=== PATIENT | male | born 1955 | race African-American/Black ===

== ENCOUNTER 2021-08-08 22:23 | Inpatient (IN) | payer MEDICARE ==
[2021-08-08 23:19] LABS: #Monocytes 0.3 10x3/uL (0.0-1.1); #Neutrophils 3.5 10x3/uL (1.5-8.4); %Basophils 0.2 % (0.0-2.0); %Lymphocytes 9.7 % (18.0-47.0); %Monocytes 6.6 % (0.0-10.0); %Neutrophils 83.3 % (40.0-75.0); Hemoglobin 12.7 g/dL (13.5-17.5); Mean Corpuscular HGB CONC 33.7 g/dL (32.0-36.0); Mean Corpuscular Hemoglobin 29.7 pg (27.0-33.0); Mean Corpuscular Volume 88.1 fl (81.2-95.1); Mean Platelet Volume 9.3 fl (7.4-10.4); Platelet Count 205 10x3/uL (150-450); RBC Distribution Width 12.5 % (11.5-14.5); Red Blood Cell (RBC) Count 4.28 10x6/uL (4.32-5.72); White Blood Cell (WBC) Count 4.2 10x3/uL (3.5-10.5)
[2021-08-08 23:35] LABS: SARS-CoV-2 NAA Rapid Test DETECTED (NotDetected)
[2021-08-08 23:41] LABS: ALT (SGPT) 29 U/L (8-55); AST (SGOT) 49 U/L (5-34); Albumin 3.2 g/dL (3.4-4.8); Alkaline Phosphatase 36 U/L (40-110); Anion Gap 14 mmol/L (10-20); BUN (Urea Nitrogen) 16 mg/dL (8.4-25.7); Bilirubin, Total 0.4 mg/dL (0.2-1.2); Calc. Creatinine Clearance 0 mL/min (70-130); Calcium 8.1 mg/dL (7.8-10.44); Carbon Dioxide 22 mmol/L (23-31); Chloride 102 mmol/L (98-107); Globulin 3.2 g/dL (2.4-3.5); Glucose 228 mg/dL (80-115); Potassium 4.3 mmol/L (3.5-5.1); Protein, Total 6.4 g/dL (5.8-8.1); Sodium 134 mmol/L (136-145)
[2021-08-09] MEDS ORDERED: Dexamethasone 10 MG/ML VIAL ONE (01:51)
[2021-08-09] MEDS ORDERED: Calcium Carbonate 500 MG ChewTAB PO PRN (02:29)
[2021-08-09] MEDS ORDERED: Guaifenesin DM 100-10/5 ML UDCUP PO PRN (02:29)
[2021-08-09] MEDS ORDERED: HYDROcodone/Acetaminophen 5/325 mg Tablet PO PRN (02:29)
[2021-08-09] MEDS ORDERED: Acetaminophen 325 MG TAB PO PRN (02:29)
[2021-08-09] MEDS ORDERED: Ondansetron PF 4 MG/2 ML Vial IVP PRN (02:29)
[2021-08-09] MEDS ORDERED: Senokot S 8.6-50 MG TAB PO PRN (02:29)
[2021-08-09] MEDS ORDERED: Dextrose 5% in Water 1,000 ML IV PRN (02:29)
[2021-08-09] MEDS ORDERED: Dextrose 50% Abboject 50 ML SYRINGE SLOW IVP PRN (02:29)
[2021-08-09] MEDS ORDERED: Ventolin HFA Inhaler 60 PUFF INHALER INH PRN (02:37)
[2021-08-09] MEDS ORDERED: Lactated Ringer's 500 ML IV SCH ×2 (04:00→04:15)
[2021-08-09 04:05] VITALS: BMI 29.0
[2021-08-09 07:13] LABS: #Monocytes 0.1 10x3/uL (0.0-1.1); #Neutrophils 3.2 10x3/uL (1.5-8.4); %Lymphocytes 10.4 % (18.0-47.0); %Monocytes 3.5 % (0.0-10.0); %Neutrophils 85.6 % (40.0-75.0); Hemoglobin 13.5 g/dL (13.5-17.5); Mean Corpuscular HGB CONC 33.9 g/dL (32.0-36.0); Mean Corpuscular Hemoglobin 29.7 pg (27.0-33.0); Mean Corpuscular Volume 87.7 fl (81.2-95.1); Mean Platelet Volume 9.2 fl (7.4-10.4); Platelet Count 210 10x3/uL (150-450); RBC Distribution Width 12.8 % (11.5-14.5); Red Blood Cell (RBC) Count 4.54 10x6/uL (4.32-5.72); White Blood Cell (WBC) Count 3.8 10x3/uL (3.5-10.5)
[2021-08-09] MEDS: HumaLOG 300 UNITS/3 ML VIAL SC PRN ×2 (07:25→11:00)
[2021-08-09 07:42] LABS: ALT (SGPT) 30 U/L (8-55); AST (SGOT) 48 U/L (5-34); Albumin 3.3 g/dL (3.4-4.8); Alkaline Phosphatase 39 U/L (40-110); Anion Gap 16 mmol/L (10-20); BUN (Urea Nitrogen) 15 mg/dL (8.4-25.7); Bilirubin, Total 0.5 mg/dL (0.2-1.2); CRP (Inflammatory) 7.65 mg/dL (= or < 0.5); Calc. Creatinine Clearance 102 mL/min (70-130); Calcium 7.9 mg/dL (7.8-10.44); Carbon Dioxide 23 mmol/L (23-31); Chloride 102 mmol/L (98-107); Globulin 2.6 g/dL (2.4-3.5); Glucose 270 mg/dL (80-115); Potassium 6.6 mmol/L (3.5-5.1); Protein, Total 5.9 g/dL (5.8-8.1); Sodium 134 mmol/L (136-145)
[2021-08-09 07:52] LABS: Thyroid Stimulating Hormone 0.6535 uIU/mL (0.35-4.94)
[2021-08-09] MEDS: metFORMIN 500 MG TAB PO SCH ×2 (08:25→17:33)
[2021-08-09] MEDS: Ascorbic Acid 500 mg Chewable Tablet PO SCH (08:25)
[2021-08-09] MEDS: Lantus 1000 UNITS/10 ML VIAL SC SCH (08:25)
[2021-08-09] MEDS: Cholecalciferol 1,000 UNITS (25 MCG) TAB PO SCH (08:25)
[2021-08-09] MEDS: Thiamine 100 MG TAB PO SCH (08:25)
[2021-08-09] MEDS: Aspirin 81 mg Enteric Coated Tablet PO SCH (08:26)
[2021-08-09] MEDS: Zinc Gluconate 50 MG TAB PO SCH (08:26)
[2021-08-09] MEDS: Multivitamin W/ Minerals 1 TAB PO SCH (08:26)
[2021-08-09] MEDS: Hydrochlorothiazide 25 MG TAB PO SCH (08:26)
[2021-08-09] MEDS: Folic Acid 1 MG TAB PO SCH (08:26)
[2021-08-09] MEDS: Lisinopril 10 MG TAB PO SCH (08:26)
[2021-08-09] MEDS: Enoxaparin Sodium 40 MG/0.4 ML SYRINGE SC SCH ×2 (08:27→21:59)
[2021-08-09 08:54] LABS: Potassium 4.7 mmol/L (3.5-5.1)
[2021-08-09] MEDS ORDERED: REMDESIVIR 200 MG in Sodium Chloride 0.9% 250 ML 210 ML IV SCH (10:00)
[2021-08-09] MEDS ORDERED: Simvastatin 10 MG TAB PO SCH (21:00)
[2021-08-09] MEDS: risperiDONE 1 MG TAB PO SCH (22:00)
[2021-08-09] MEDS: Atorvastatin Calcium 40 MG TAB PO SCH (22:00)
[2021-08-10] MEDS: HumaLOG 300 UNITS/3 ML VIAL SC PRN ×4 (00:24→23:27)
[2021-08-10] MEDS ORDERED: Dexamethasone 4 mg/ml Vial SLOW IVP SCH (02:45)
[2021-08-10 04:04] LABS: Anion Gap 15 mmol/L (10-20); BUN (Urea Nitrogen) 17 mg/dL (8.4-25.7); Calc. Creatinine Clearance 125 mL/min (70-130); Carbon Dioxide 21 mmol/L (23-31); Chloride 101 mmol/L (98-107); Glucose 245 mg/dL (80-115); Potassium 4.4 mmol/L (3.5-5.1); Sodium 133 mmol/L (136-145)
[2021-08-10 04:07] LABS: #Monocytes 0.3 10x3/uL (0.0-1.1); #Neutrophils 4.5 10x3/uL (1.5-8.4); %Lymphocytes 9.1 % (18.0-47.0); %Monocytes 6.3 % (0.0-10.0); %Neutrophils 83.9 % (40.0-75.0); Hemoglobin 13.8 g/dL (13.5-17.5); Mean Corpuscular Hemoglobin 29.3 pg (27.0-33.0); Mean Corpuscular Volume 86.2 fl (81.2-95.1); Mean Platelet Volume 9.3 fl (7.4-10.4); Platelet Count 275 10x3/uL (150-450); RBC Distribution Width 12.3 % (11.5-14.5); Red Blood Cell (RBC) Count 4.71 10x6/uL (4.32-5.72); White Blood Cell (WBC) Count 5.4 10x3/uL (3.5-10.5)
[2021-08-10] MEDS: Dexamethasone 4 mg/ml Vial SLOW IVP SCH (06:50)
[2021-08-10] MEDS: Lisinopril 10 MG TAB PO SCH (09:05)
[2021-08-10] MEDS: Zinc Gluconate 50 MG TAB PO SCH (09:05)
[2021-08-10] MEDS: Aspirin 81 mg Enteric Coated Tablet PO SCH (09:05)
[2021-08-10] MEDS: Folic Acid 1 MG TAB PO SCH (09:05)
[2021-08-10] MEDS: Hydrochlorothiazide 25 MG TAB PO SCH (09:05)
[2021-08-10] MEDS: Thiamine 100 MG TAB PO SCH (09:05)
[2021-08-10] MEDS: Cholecalciferol 1,000 UNITS (25 MCG) TAB PO SCH (09:08)
[2021-08-10] MEDS: Ascorbic Acid 500 mg Chewable Tablet PO SCH (09:08)
[2021-08-10] MEDS: Multivitamin W/ Minerals 1 TAB PO SCH (09:08)
[2021-08-10] MEDS: metFORMIN 500 MG TAB PO SCH ×2 (09:08→17:40)
[2021-08-10] MEDS: Enoxaparin Sodium 40 MG/0.4 ML SYRINGE SC SCH ×2 (09:09→20:03)
[2021-08-10] MEDS: Lantus 1000 UNITS/10 ML VIAL SC SCH ×2 (09:42→20:35)
[2021-08-10] MEDS: REMDESIVIR 100 MG in Sodium Chloride 0.9% 250 ML 230 ML IV SCH (12:30)
[2021-08-10] MEDS ORDERED: Metoprolol Tartrate 5 MG/5 ML VIAL IVP PRN (19:18)
[2021-08-10] MEDS: Atorvastatin Calcium 40 MG TAB PO SCH (20:02)
[2021-08-10] MEDS: risperiDONE 1 MG TAB PO SCH (20:02)
[2021-08-10] MEDS: Metoprolol Tartrate 25 MG TAB PO SCH (20:02)
[2021-08-11 04:35] LABS: Anion Gap 13 mmol/L (10-20); BUN (Urea Nitrogen) 17 mg/dL (8.4-25.7); Calc. Creatinine Clearance 105 mL/min (70-130); Calcium 8.9 mg/dL (7.8-10.44); Carbon Dioxide 25 mmol/L (23-31); Chloride 101 mmol/L (98-107); Glucose 239 mg/dL (80-115); Potassium 4.3 mmol/L (3.5-5.1); Sodium 135 mmol/L (136-145)
[2021-08-11 04:54] LABS: #Monocytes 0.5 10x3/uL (0.0-1.1); #Neutrophils 4.9 10x3/uL (1.5-8.4); %Basophils 0.2 % (0.0-2.0); %Lymphocytes 8.2 % (18.0-47.0); %Monocytes 8.2 % (0.0-10.0); %Neutrophils 82.4 % (40.0-75.0); Mean Corpuscular Hemoglobin 29.2 pg (27.0-33.0); Mean Platelet Volume 9.4 fl (7.4-10.4); Platelet Count 321 10x3/uL (150-450); RBC Distribution Width 12.5 % (11.5-14.5); Red Blood Cell (RBC) Count 4.79 10x6/uL (4.32-5.72)
[2021-08-11] MEDS: Dexamethasone 4 mg/ml Vial SLOW IVP SCH (05:11)
[2021-08-11] MEDS: HumaLOG 300 UNITS/3 ML VIAL SC PRN ×4 (05:20→20:37)
[2021-08-11] MEDS: metFORMIN 500 MG TAB PO SCH ×2 (08:37→18:25)
[2021-08-11] MEDS: Folic Acid 1 MG TAB PO SCH (08:37)
[2021-08-11] MEDS: Metoprolol Tartrate 25 MG TAB PO SCH ×2 (08:37→20:07)
[2021-08-11] MEDS: Ascorbic Acid 500 mg Chewable Tablet PO SCH (08:37)
[2021-08-11] MEDS: Thiamine 100 MG TAB PO SCH (08:37)
[2021-08-11] MEDS: Zinc Gluconate 50 MG TAB PO SCH (08:37)
[2021-08-11] MEDS: Lisinopril 10 MG TAB PO SCH (08:37)
[2021-08-11] MEDS: Aspirin 81 mg Enteric Coated Tablet PO SCH (08:37)
[2021-08-11] MEDS: Cholecalciferol 1,000 UNITS (25 MCG) TAB PO SCH (08:38)
[2021-08-11] MEDS: Hydrochlorothiazide 25 MG TAB PO SCH (08:38)
[2021-08-11] MEDS: Multivitamin W/ Minerals 1 TAB PO SCH (08:38)
[2021-08-11] MEDS: Enoxaparin Sodium 40 MG/0.4 ML SYRINGE SC SCH ×2 (08:38→20:06)
[2021-08-11] MEDS: Lantus 1000 UNITS/10 ML VIAL SC SCH ×2 (08:41→20:37)
[2021-08-11] MEDS: REMDESIVIR 100 MG in Sodium Chloride 0.9% 250 ML 230 ML IV SCH (11:53)
[2021-08-11] MEDS: Amiodarone 200 MG TAB PO SCH (20:06)
[2021-08-11] MEDS: risperiDONE 1 MG TAB PO SCH (20:06)
[2021-08-11] MEDS: Atorvastatin Calcium 40 MG TAB PO SCH (20:07)
[2021-08-12 04:44] LABS: #Monocytes 0.5 10x3/uL (0.0-1.1); #Neutrophils 4.6 10x3/uL (1.5-8.4); %Eosinophils 0.2 % (0.0-6.0); %Lymphocytes 14.2 % (18.0-47.0); %Monocytes 8.1 % (0.0-10.0); %Neutrophils 76.8 % (40.0-75.0); Hemoglobin 13.9 g/dL (13.5-17.5); Mean Corpuscular HGB CONC 34.1 g/dL (32.0-36.0); Mean Corpuscular Hemoglobin 29.6 pg (27.0-33.0); Mean Corpuscular Volume 86.8 fl (81.2-95.1); Mean Platelet Volume 8.9 fl (7.4-10.4); Platelet Count 345 10x3/uL (150-450); RBC Distribution Width 12.6 % (11.5-14.5); White Blood Cell (WBC) Count 5.9 10x3/uL (3.5-10.5)
[2021-08-12 04:58] LABS: ALT (SGPT) 27 U/L (8-55); AST (SGOT) 36 U/L (5-34); Alkaline Phosphatase 40 U/L (40-110); Anion Gap 15 mmol/L (10-20); BUN (Urea Nitrogen) 20 mg/dL (8.4-25.7); Bilirubin, Total 0.3 mg/dL (0.2-1.2); Calc. Creatinine Clearance 98 mL/min (70-130); Calcium 8.8 mg/dL (7.8-10.44); Carbon Dioxide 26 mmol/L (23-31); Chloride 102 mmol/L (98-107); Glucose 130 mg/dL (80-115); Magnesium 1.7 mg/dL (1.6-2.6); Potassium 3.9 mmol/L (3.5-5.1); Sodium 139 mmol/L (136-145)
[2021-08-12] MEDS: Dexamethasone 4 mg/ml Vial SLOW IVP SCH (05:02)
[2021-08-12] MEDS: Thiamine 100 MG TAB PO SCH (09:05)
[2021-08-12] MEDS: Metoprolol Tartrate 25 MG TAB PO SCH ×2 (09:05→23:55)
[2021-08-12] MEDS: Lisinopril 10 MG TAB PO SCH (09:06)
[2021-08-12] MEDS: Aspirin 81 mg Enteric Coated Tablet PO SCH (09:06)
[2021-08-12] MEDS: Cholecalciferol 1,000 UNITS (25 MCG) TAB PO SCH (09:06)
[2021-08-12] MEDS: Amiodarone 200 MG TAB PO SCH ×2 (09:06→23:54)
[2021-08-12] MEDS: Ascorbic Acid 500 mg Chewable Tablet PO SCH (09:06)
[2021-08-12] MEDS: Multivitamin W/ Minerals 1 TAB PO SCH (09:07)
[2021-08-12] MEDS: Zinc Gluconate 50 MG TAB PO SCH (09:07)
[2021-08-12] MEDS: metFORMIN 500 MG TAB PO SCH ×2 (09:07→17:00)
[2021-08-12] MEDS: Folic Acid 1 MG TAB PO SCH (09:07)
[2021-08-12] MEDS: Hydrochlorothiazide 25 MG TAB PO SCH (09:07)
[2021-08-12] MEDS: Apixaban 5 MG TAB PO SCH ×2 (09:08→23:54)
[2021-08-12] MEDS: Lantus 1000 UNITS/10 ML VIAL SC SCH (09:13)
[2021-08-12] MEDS ORDERED: Magnesium Sulfate 3 GM in Sodium Chloride 0.9% 100 ML IVPB SCH (09:15)
[2021-08-12] MEDS ORDERED: Magnesium 2 GM/50 ML 2 GM in Premix Bag 1 BAG IVPB SCH (09:30)
[2021-08-12] MEDS: REMDESIVIR 100 MG in Sodium Chloride 0.9% 250 ML 230 ML IV SCH (14:06)
[2021-08-12] MEDS: HumaLOG 300 UNITS/3 ML VIAL SC PRN ×2 (17:00→23:56)
[2021-08-12] MEDS ORDERED: Lantus 1000 UNITS/10 ML VIAL SC SCH (21:00)
[2021-08-12] MEDS: risperiDONE 1 MG TAB PO SCH (23:54)
[2021-08-12] MEDS: Atorvastatin Calcium 40 MG TAB PO SCH (23:55)
[2021-08-13] MEDS: Dexamethasone 4 mg/ml Vial SLOW IVP SCH (07:01)
[2021-08-13] MEDS: Zinc Gluconate 50 MG TAB PO SCH (09:46)
[2021-08-13] MEDS: Lisinopril 10 MG TAB PO SCH (09:47)
[2021-08-13] MEDS: Thiamine 100 MG TAB PO SCH (09:47)
[2021-08-13] MEDS: Metoprolol Tartrate 25 MG TAB PO SCH ×2 (09:47→21:55)
[2021-08-13] MEDS: Amiodarone 200 MG TAB PO SCH ×2 (09:47→21:55)
[2021-08-13] MEDS: Apixaban 5 MG TAB PO SCH ×2 (09:47→21:55)
[2021-08-13] MEDS: Hydrochlorothiazide 25 MG TAB PO SCH (09:47)
[2021-08-13] MEDS: Ascorbic Acid 500 mg Chewable Tablet PO SCH (09:47)
[2021-08-13] MEDS: Cholecalciferol 1,000 UNITS (25 MCG) TAB PO SCH (09:48)
[2021-08-13] MEDS: Folic Acid 1 MG TAB PO SCH (09:48)
[2021-08-13] MEDS: metFORMIN 500 MG TAB PO SCH ×2 (09:48→17:08)
[2021-08-13] MEDS: Aspirin 81 mg Enteric Coated Tablet PO SCH (09:48)
[2021-08-13] MEDS: Multivitamin W/ Minerals 1 TAB PO SCH (09:49)
[2021-08-13] MEDS: Lantus 1000 UNITS/10 ML VIAL SC SCH ×2 (09:49→22:01)
[2021-08-13] MEDS: REMDESIVIR 100 MG in Sodium Chloride 0.9% 250 ML 230 ML IV SCH (12:22)
[2021-08-13] MEDS: risperiDONE 1 MG TAB PO SCH (21:55)
[2021-08-13] MEDS: Atorvastatin Calcium 40 MG TAB PO SCH (21:55)
[2021-08-14 05:01] LABS: #Monocytes 0.7 10x3/uL (0.0-1.1); #Neutrophils 7.3 10x3/uL (1.5-8.4); %Basophils 0.1 % (0.0-2.0); %Eosinophils 0.3 % (0.0-6.0); %Lymphocytes 8.5 % (18.0-47.0); %Monocytes 7.4 % (0.0-10.0); %Neutrophils 82.7 % (40.0-75.0); Hemoglobin 12.5 g/dL (13.5-17.5); Mean Corpuscular HGB CONC 33.6 g/dL (32.0-36.0); Mean Corpuscular Hemoglobin 29.3 pg (27.0-33.0); Mean Corpuscular Volume 87.1 fl (81.2-95.1); Mean Platelet Volume 9.1 fl (7.4-10.4); Platelet Count 407 10x3/uL (150-450); RBC Distribution Width 12.5 % (11.5-14.5); Red Blood Cell (RBC) Count 4.27 10x6/uL (4.32-5.72); White Blood Cell (WBC) Count 8.9 10x3/uL (3.5-10.5)
[2021-08-14 05:23] LABS: ALT (SGPT) 78 U/L (8-55); AST (SGOT) 64 U/L (5-34); Alkaline Phosphatase 38 U/L (40-110); Anion Gap 13 mmol/L (10-20); BUN (Urea Nitrogen) 16 mg/dL (8.4-25.7); Bilirubin, Total 0.3 mg/dL (0.2-1.2); Calc. Creatinine Clearance 118 mL/min (70-130); Calcium 8.5 mg/dL (7.8-10.44); Carbon Dioxide 24 mmol/L (23-31); Chloride 102 mmol/L (98-107); Glucose 249 mg/dL (80-115); Magnesium 1.8 mg/dL (1.6-2.6); Potassium 4.2 mmol/L (3.5-5.1); Sodium 135 mmol/L (136-145)
[2021-08-14] MEDS: Dexamethasone 4 mg/ml Vial SLOW IVP SCH (05:55)
[2021-08-14] MEDS: HumaLOG 300 UNITS/3 ML VIAL SC PRN ×3 (05:56→18:11)
[2021-08-14] MEDS: Ascorbic Acid 500 mg Chewable Tablet PO SCH (09:15)
[2021-08-14] MEDS: Zinc Gluconate 50 MG TAB PO SCH (09:15)
[2021-08-14] MEDS: Thiamine 100 MG TAB PO SCH (09:15)
[2021-08-14] MEDS: Aspirin 81 mg Enteric Coated Tablet PO SCH (09:15)
[2021-08-14] MEDS: Apixaban 5 MG TAB PO SCH ×2 (09:15→22:00)
[2021-08-14] MEDS: Hydrochlorothiazide 25 MG TAB PO SCH (09:15)
[2021-08-14] MEDS: Folic Acid 1 MG TAB PO SCH (09:15)
[2021-08-14] MEDS: metFORMIN 500 MG TAB PO SCH ×2 (09:15→18:11)
[2021-08-14] MEDS: Amiodarone 200 MG TAB PO SCH ×2 (09:15→22:00)
[2021-08-14] MEDS: Metoprolol Tartrate 25 MG TAB PO SCH ×2 (09:15→22:00)
[2021-08-14] MEDS: Multivitamin W/ Minerals 1 TAB PO SCH (09:15)
[2021-08-14] MEDS: Lisinopril 10 MG TAB PO SCH (09:15)
[2021-08-14] MEDS: Cholecalciferol 1,000 UNITS (25 MCG) TAB PO SCH (09:16)
[2021-08-14] MEDS: Lantus 1000 UNITS/10 ML VIAL SC SCH ×2 (09:37→22:01)
[2021-08-14] MEDS ORDERED: Glimepiride 2 MG TAB PO SCH (12:45)
[2021-08-14] MEDS: Atorvastatin Calcium 40 MG TAB PO SCH (22:00)
[2021-08-14] MEDS: risperiDONE 1 MG TAB PO SCH (22:01)
[2021-08-15 05:05] LABS: #Monocytes 0.7 10x3/uL (0.0-1.1); #Neutrophils 8.6 10x3/uL (1.5-8.4); %Basophils 0.2 % (0.0-2.0); %Eosinophils 0.1 % (0.0-6.0); %Lymphocytes 7.4 % (18.0-47.0); %Monocytes 7.1 % (0.0-10.0); Hemoglobin 13.5 g/dL (13.5-17.5); Mean Corpuscular HGB CONC 34.1 g/dL (32.0-36.0); Mean Corpuscular Hemoglobin 29.6 pg (27.0-33.0); Mean Corpuscular Volume 86.8 fl (81.2-95.1); Mean Platelet Volume 8.8 fl (7.4-10.4); Platelet Count 476 10x3/uL (150-450); RBC Distribution Width 12.5 % (11.5-14.5); Red Blood Cell (RBC) Count 4.56 10x6/uL (4.32-5.72); White Blood Cell (WBC) Count 10.2 10x3/uL (3.5-10.5)
[2021-08-15 05:15] LABS: ALT (SGPT) 76 U/L (8-55); AST (SGOT) 45 U/L (5-34); Albumin 3.3 g/dL (3.4-4.8); Alkaline Phosphatase 41 U/L (40-110); Anion Gap 14 mmol/L (10-20); BUN (Urea Nitrogen) 17 mg/dL (8.4-25.7); Bilirubin, Total 0.3 mg/dL (0.2-1.2); Calc. Creatinine Clearance 119 mL/min (70-130); Calcium 9.3 mg/dL (7.8-10.44); Carbon Dioxide 24 mmol/L (23-31); Chloride 102 mmol/L (98-107); Globulin 3.1 g/dL (2.4-3.5); Glucose 229 mg/dL (80-115); Magnesium 1.8 mg/dL (1.6-2.6); Phosphorus 3.1 mg/dL (2.3-4.7); Potassium 4.3 mmol/L (3.5-5.1); Protein, Total 6.4 g/dL (5.8-8.1); Sodium 136 mmol/L (136-145)
[2021-08-15] MEDS ORDERED: Glimepiride 2 MG TAB PO SCH ×2 (08:00)
[2021-08-15] MEDS ORDERED: Magnesium Oxide 400 MG TAB PO SCH (09:00)
[2021-08-15] MEDS: Metoprolol Tartrate 25 MG TAB PO SCH (09:01)
[2021-08-15] MEDS: Hydrochlorothiazide 25 MG TAB PO SCH (09:01)
[2021-08-15] MEDS: Multivitamin W/ Minerals 1 TAB PO SCH (09:01)
[2021-08-15] MEDS: Amiodarone 200 MG TAB PO SCH (09:02)
[2021-08-15] MEDS: Ascorbic Acid 500 mg Chewable Tablet PO SCH (09:02)
[2021-08-15] MEDS: metFORMIN 500 MG TAB PO SCH (09:02)
[2021-08-15] MEDS: Folic Acid 1 MG TAB PO SCH (09:02)
[2021-08-15] MEDS: Cholecalciferol 1,000 UNITS (25 MCG) TAB PO SCH (09:02)
[2021-08-15] MEDS: Zinc Gluconate 50 MG TAB PO SCH (09:02)
[2021-08-15] MEDS: Lisinopril 10 MG TAB PO SCH (09:02)
[2021-08-15] MEDS: Thiamine 100 MG TAB PO SCH (09:02)
[2021-08-15] MEDS: Lantus 1000 UNITS/10 ML VIAL SC SCH (09:03)
[2021-08-15] MEDS: Apixaban 5 MG TAB PO SCH (09:03)
[2021-08-15] MEDS: Aspirin 81 mg Enteric Coated Tablet PO SCH (09:03)
[2021-08-15 12:22] VITALS: BP 114/67; TEMP 98
== END 2021-08-15 17:50 | disposition home or self-care (01) | DRG 177 ==
LOC: CSHERS 22:23 → UNDOADMIN 22:34 → CSHTELE 22:34
PROVIDERS: ADMIT Student in an Organized Health Care Education/Training Program; ATTEND Family Medicine
PROC: XW033E5 Introduction of Remdesivir Anti-infective into Peripheral Vein, Percutaneous Approach, New Technology Group 5 (ICD-10-PCS; principal; 2021-08-09)
PROC: 3E0333Z Introduction of Anti-inflammatory into Peripheral Vein, Percutaneous Approach (ICD-10-PCS; 2021-08-09)
PROC: 8E0ZXY6 Isolation (ICD-10-PCS; 2021-08-09)
DX: U07.1 COVID-19 (principal); J12.82 Pneumonia due to coronavirus disease 2019; J96.01 Acute respiratory failure with hypoxia; F20.0 Paranoid schizophrenia; I10 Essential (primary) hypertension; I48.0 Paroxysmal atrial fibrillation; F32.A Depression, unspecified; G25.2 Other specified forms of tremor; E78.2 Mixed hyperlipidemia; F10.10 Alcohol abuse, uncomplicated; E11.65 Type 2 diabetes mellitus with hyperglycemia; Z79.4 Long term (current) use of insulin; Z87.891 Personal history of nicotine dependence; Z79.899 Other long term (current) drug therapy
CPT/HCPCS: 36415; 36416; 71045; 80048; 80053; 82607; 82746; 83605; 83735; 84100; 84443; 84484; 85025; 85379; 86140; 93005; 93010; 94760; 96374; J1100; J1650; J1815; J3475; J7050; J7120; U0002

== ENCOUNTER 2025-07-04 11:39 | Emergency (ER) | payer OTHER | END 2025-07-04 13:11 | disposition home or self-care (01) | LOC: CSHERS 11:39 | DX: Z04.3 Encounter for examination and observation following other accident (principal); I48.91 Unspecified atrial fibrillation; E11.9 Type 2 diabetes mellitus without complications; I10 Essential (primary) hypertension; Z87.891 Personal history of nicotine dependence; Z79.84 Long term (current) use of oral hypoglycemic drugs; W17.89XA Other fall from one level to another, initial encounter | CPT/HCPCS: 71045; 93005 ==